=== PATIENT | female | born 1955 | race Caucasian/White ===

== ENCOUNTER → 2017-05-07 | Outpatient (CLI) | payer OTHER ==
--- NOTE | 2017-05-07 10:45 | RADIOLOGY IMAGING REPORT ---
FACILITY: [facility] PATIENT NAME: Kailey Morris : 1955 MR: [id number] V: [id number] EXAM DATE: ORDERING PHYSICIAN: RAMÓN SHELLEY TECHNOLOGIST: Location: [facility] - [place] Patient: Kailey Morris : 1955 Visit/Account:[id number] Date of Sevice: 05/07/2017 CAROTID HISTORY: Right carotid bruit COMPARISON: None. FINDINGS: Grayscale, duplex and color Doppler interrogation of the extracranial carotid and vertebral arteries was performed bilateral. On the right, peak systolic velocities within the common and internal carotid arteries are 84 and 91 cm/sec respectively. No significant plaque identified. Antegrade flow within the common, internal a nd external carotid arteries as well as vertebral artery. ICA/CCA ratio 1.1. On the left, peak systolic velocities within the common and internal carotid arteries are 86 and 112 cm/sec respectively. No significant plaque identified. Antegrade flow within the common, internal a nd external carotid arteries as well as vertebral artery. ICA/CCA ratio 1.3. IMPRESSION: Unremarkable carotid ultrasound Velocity criteria are extrapolated from diameter data as defined by the Society of Radiologists in Ul trasound Consensus Conference Radiology 2003; 229;340-346 Report Dictated By: Radha Cerda MD at 05/07/2017 10:39 AM Report E-Signed By: Radha Cerda MD at 05/07/2017 10:40 AM WSN:[id number]
--- NOTE | 2017-05-08 11:49 | RADIOLOGY IMAGING REPORT ---
FACILITY: [facility] - [place], [place] PATIENT NAME: KRISTEL PÉREZ : [id number] MR: [id number] V: [id number] EXAM DATE: [id number] ORDERING PHYSICIAN: RAMÓN SHELLEY TECHNOLOGIST: Oneida Echevarria PROCEDURE:BILATERAL DIGITAL SCREENING MAMMOGRAM WITH CAD ASSISTED INTERPRETATION & 3D TOMOSYNTHESIS COMPARISON:Prior mammograms 05/07/11, 03/26/09, 03/21/08, 03/31/06, 02/25/05. INDICATIONS:SCREENING FINDINGS: Small amount of fibroglandular tissue is seen throughout the breasts. The parenchymal pattern has remained stable allowing for difference in mammographic technique & patient positioning. There is no evidence of malignant appearing mass, malignant appearing calcifications or other secondary sign of malignancy in either breast. DIAGNOSTIC CATEGORY 2--BENIGN FINDING. RECOMMENDATIONS: ROUTINE MAMMOGRAM AND CLINICAL EVALUATION. IMPRESSION: BIRADS 2: Benign finding No significant abnormality is seen. Dictated by: Radha Cerda M.D. on 05/08/2017 at 9:51 Transcribed by: MICHELLE on 05/08/2017 at 10:02 Approved by: Radha Cerda M.D. on 05/08/2017 at 11:48 [facility]
== END ==
LOC: MAMO 08:18
PROVIDERS: ATTEND Family Medicine
DX: Z12.31 Encounter for screening mammogram for malignant neoplasm of breast (principal); R01.1 Cardiac murmur, unspecified
CPT/HCPCS: 77063; 77067; 93880